=== PATIENT | female | born 1960 | race Caucasian/White ===

== ENCOUNTER → 2022-05-04 07:13 | Outpatient (CLI) | payer OTHER, SELFPAY ==
[2022-05-04 08:30] LABS: Hematocrit 39.6 % (36-46); Hemoglobin 13.6 g/dL (12.0-16.0); Mean Corpuscular HGB Conc 34.2 % (30-36); Mean Corpuscular Hemoglobin 30.6 PG (26-34); Mean Corpuscular Volume 89.3 fL (80-100); Platelet Count 202 X10^3/uL (150-400); Red Blood Cell Count 4.44 X10^6/uL (4.0-5.2); Red Cell Distribution Width 13.4 % (11.6-14.8); White Blood Cell Count 4.7 X10^3/uL (4.5-11.0)
[2022-05-04 08:50] LABS: Alanine Aminotransferase 24 IU/L (<35); Albumin 4.5 g/dL (3.5-5.0); Albumin Globulin Ratio 1.5 (1.0-2.8); Alkaline Phosphatase 116 U/L (38-126); Aspartate Aminotransferase 35 IU/L (14-36); BUN Creatinine Ratio 32.4 (6-22); Bilirubin Total 0.3 mg/dL (0.2-1.3); Blood Urea Nitrogen 24 mg/dL (7-17); Calcium 9.1 mg/dL (8.4-10.2); Carbon Dioxide 26 mmol/L (22-32); Chloride 105 mmol/L (98-107); Cholesterol 237 mg/dL (140-199); Estimated Glomerular Filt Rate > 60 mL/min (>60); Globulin 3.1 g/dL (1.7-4.1); Glucose 105 mg/dL (80-110); HDL Cholesterol 69 mg/dL (40-60); HEMOLYSIS 24 (0-50); LDL Cholesterol Calculated 140 mg/dL (<100); Potassium 4.4 mmol/L (3.4-5.1); Sodium 138 mmol/L (137-145); Total Protein 7.6 g/dL (6.3-8.2); Triglycerides 141 mg/dL (35-150)
[2022-05-04 10:40] LABS: TSH w/ Reflex to FT4 3.32 uIU/mL (0.47-4.68)
== END ==
PROVIDERS: PCP Internal Medicine; Referring Provider Internal Medicine; Visit Provider Internal Medicine
DX: E78.2 Mixed hyperlipidemia (principal); F41.1 Generalized anxiety disorder; F51.04 Psychophysiologic insomnia; I10 Essential (primary) hypertension; N95.1 Menopausal and female climacteric states
CPT/HCPCS: 36415; 80053; 80061; 84443; 85027

== ENCOUNTER → 2023-11-01 07:41 | Outpatient (CLI) | payer OTHER, SELFPAY ==
[2023-11-01 08:18] LABS: Add Manual Diff / Slide Review NO; Basophils Absolute Auto 0 /uL (0-100); Basophils Percent Auto 0.5 % (0-2); Eosinophils Absolute Auto 100 /uL (0-450); Eosinophils Percent Auto 1.7 % (2-4); Hematocrit 40.7 % (36-46); Hemoglobin 13.7 g/dL (12.0-16.0); Lymphocytes Absolute Auto 1300 /uL (1100-4500); Lymphocytes Percent Auto 26.5 % (25-40); Mean Corpuscular HGB Conc 33.5 % (30-36); Mean Corpuscular Hemoglobin 29.8 PG (26-34); Mean Corpuscular Volume 88.8 fL (80-100); Monocytes Absolute Auto 400 /uL (0-900); Monocytes Percent Auto 7.1 % (3-14); Neutrophils Absolute Auto 3200 /uL (1500-7000); Neutrophils Percent Auto 64.2 % (50-75); Platelet Count 227 X10^3/uL (150-400); Red Blood Cell Count 4.59 X10^6/uL (4.0-5.2); Red Cell Distribution Width 13.4 % (11.6-14.8)
[2023-11-01 08:45] LABS: Alanine Aminotransferase 25 IU/L (<35); Albumin 4.6 g/dL (3.5-5.0); Albumin Globulin Ratio 1.4 (1.0-2.8); Alkaline Phosphatase 70 U/L (38-126); Aspartate Aminotransferase 32 IU/L (14-36); BUN Creatinine Ratio 22.1 (6-22); Bilirubin Total 0.6 mg/dL (0.2-1.3); Blood Urea Nitrogen 19 mg/dL (7-17); Calcium 10.3 mg/dL (8.4-10.2); Carbon Dioxide 28 mmol/L (22-32); Chloride 100 mmol/L (98-107); Cholesterol 209 mg/dL (140-199); Estimated Glomerular Filt Rate > 60 mL/min (>60); Globulin 3.2 g/dL (1.7-4.1); Glucose 100 mg/dL (80-110); HDL Cholesterol 65 mg/dL (40-60); HEMOLYSIS < 15 (0-50); LDL Cholesterol Calculated 120 mg/dL (<100); Potassium 4.9 mmol/L (3.4-5.1); Sodium 136 mmol/L (137-145); Total Protein 7.8 g/dL (6.3-8.2); Triglycerides 119 mg/dL (35-150)
== END ==
PROVIDERS: PCP Internal Medicine; Referring Provider Family Medicine; Visit Provider Family Medicine
DX: E88.810 Metabolic syndrome (principal); R73.01 Impaired fasting glucose; E78.2 Mixed hyperlipidemia
CPT/HCPCS: 36415; 80053; 80061; 83036; 85025

== ENCOUNTER → 2024-03-08 09:02 | Outpatient (CLI) | payer OTHER, SELFPAY ==
[2024-03-08 09:49] LABS: Aspartate Aminotransferase 45 IU/L (14-36); Cholesterol 153 mg/dL (140-199); HDL Cholesterol 83 mg/dL (40-60); LDL Cholesterol Calculated 56 mg/dL (<100); Triglycerides 71 mg/dL (35-150)
== END ==
PROVIDERS: PCP Internal Medicine; Referring Provider Internal Medicine; Visit Provider Internal Medicine
DX: E78.2 Mixed hyperlipidemia (principal)
CPT/HCPCS: 80061; 84450

== ENCOUNTER → 2024-09-26 14:16 | Outpatient (CLI) | payer OTHER, SELFPAY ==
--- NOTE | 2024-09-26 14:17 | DI.MRI.S_ITS ---
BREAST MRI OF BOTH BREASTS: 09/26/2024 CLINICAL: Left breast implant rupture. No prior exams were available for comparison. TECHNIQUE: The patient was placed prone in a dedicated breast imaging coil. Axial bilateral STIR, axial and sagittal STIR with water saturation (silicone selective), sagittal T2 fast spin echo with fat saturation, and coronal T2 fast spin echo without fat saturation sequences were acquired. FINDINGS: Image quality: There is respiratory motion and pulsation artifact on multiple sequences that mildly compromises evaluation. Diagnostic information is obtained. Right breast: Retropectoral silicone implant is present. Multiple radial folds are seen. There is silicone present between the internal and external capsules anteriorly and superiorly, consistent with intracapsular rupture. No extracapsular rupture or free silicone is seen. No suspicious breast mass is seen on this noncontrast exam. No axillary or internal mammary lymphadenopathy. Left breast: Retropectoral silicone implant is present. Multiple radial folds are seen. No separation of capsules is seen to suggest intracapsular rupture. No extracapsular rupture or free silicon in the breast. No suspicious breast mass is seen on this noncontrast exam. No axillary or internal mammary lymphadenopathy. IMPRESSION: BENIGN 1. Right breast retropectoral silicone implant with intracapsular rupture. No extracapsular rupture or free silicone is seen. 2. Left breast retropectoral silicone implant. Multiple prominent radial folds are seen, but no intracapsular or extracapsular rupture is identified. BIRADS 2: Benign. Recommend clinical correlation. This exam was interpreted at Station ID: [id number]. Electronically Signed By: Efra Santana M.D. ar/:09/27/2024 12:42:14 letter sent: Clinical Evaluation ACR BI-RADS Category 2: Benign
== END ==
PROVIDERS: PCP Internal Medicine; Referring Provider Physician Assistant; Visit Provider Physician Assistant
DX: T85.44XA Capsular contracture of breast implant, initial encounter (principal); T85.43XA Leakage of breast prosthesis and implant, initial encounter
CPT/HCPCS: 77047

== ENCOUNTER → 2025-01-08 07:43 | Outpatient (CLI) | payer OTHER, SELFPAY ==
[2025-01-08 07:58] LABS: Hemoglobin 13.1 g/dL (12.0-16.0); Mean Corpuscular HGB Conc 34.4 % (30-36); Mean Corpuscular Hemoglobin 30.5 PG (26-34); Mean Corpuscular Volume 88.8 fL (80-100); Platelet Count 227 X10^3/uL (150-400); Red Blood Cell Count 4.28 X10^6/uL (4.0-5.2); Red Cell Distribution Width 13.5 % (11.6-14.8); White Blood Cell Count 4.1 X10^3/uL (4.5-11.0)
[2025-01-08 08:31] LABS: Alanine Aminotransferase 29 IU/L (<35); Albumin 4.9 g/dL (3.5-5.0); Albumin Globulin Ratio 1.7 (1.0-2.8); Alkaline Phosphatase 104 U/L (38-126); Aspartate Aminotransferase 44 IU/L (14-36); BUN Creatinine Ratio 24.1 (6-22); Bilirubin Total 0.9 mg/dL (0.2-1.3); Blood Urea Nitrogen 19 mg/dL (7-17); Calcium 9.9 mg/dL (8.4-10.2); Carbon Dioxide 28 mmol/L (22-32); Chloride 102 mmol/L (98-107); Cholesterol 161 mg/dL (140-199); Estimated Glomerular Filt Rate > 60 mL/min (>60); Globulin 2.9 g/dL (1.7-4.1); Glucose 104 mg/dL (80-110); HDL Cholesterol 86 mg/dL (40-60); HEMOLYSIS < 15 (0-50); LDL Cholesterol Calculated 61 mg/dL (<100); Potassium 4.3 mmol/L (3.4-5.1); Sodium 139 mmol/L (137-145); Total Protein 7.8 g/dL (6.3-8.2); Triglycerides 70 mg/dL (35-150)
[2025-01-08 09:01] LABS: TSH w/ Reflex to FT4 1.15 uIU/mL (0.47-4.68)
--- NOTE | 2025-01-08 11:55 | DI.RAD.S_ITS ---
PROCEDURE: XR DEXA AXIAL SKELETON INDICATIONS: postmenopausal COMPARISON: None. FINDINGS: Lumbar Spine: Bone mineral density 0.802 g/cm2, T score -2.2. Left Femoral Neck: Bone mineral density 0.610 g/cm2, T score -2.2. Left Hip: Bone mineral density 0.754 g/cm2, T score -1.5 Fracture Risk Calculation (when applicable): 10-year fracture risk of a major osteoporotic fracture 9.8 percent and of a hip fracture 1.7 percent. (T score greater or equal to -1.0 to: NORMAL) (T score from -1.1 to -2.4: OSTEOPENIA) (T score less than or equal to -2.5: OSTEOPOROSIS) IMPRESSION: Moderate to severe osteopenia most severe in the lumbar spine and left femoral neck. Follow-up guidelines as follows: Osteoporosis: Consider a repeat DEXA and Vertebral Fracture Assessment (VFA) exam in 2 years or sooner if medically necessary, to reassess this patient's status. Osteopenia: Consider a repeat DEXA in 2-3 years to reassess this patient's status, or if there is a new clinical indication. Normal: Consider a repeat DEXA in 5 years or sooner, or if there is a new clinical indication. All treatment decisions require clinical judgment and consideration of individual patient factors, including patient preferences, comorbidities, previous drug use, risk factors not captured in the FRAX model (e.g., frailty, falls, vitamin D deficiency, increased bone turnover, interval significant decline in bone density ) and possible under- or over-estimation of fracture risk by FRAX. In addition, the NOF Guide recommends that FDA-approved medical therapies be considered in postmenopausal women and men age >= 50 years with a: * Hip or vertebral (clinical or morphometric) fracture * T-score of <=-2.5 at the spine or hip * Ten-year fracture probability by FRAX of >= 3% for hip fracture or >=20% for major osteoporotic fracture. Dictated by: Nikia Mercado M.D. on 01/08/2025 at 14:15 Approved by: Nikia Mercado M.D. on 01/08/2025 at 14:16
== END ==
PROVIDERS: PCP Internal Medicine; Referring Provider Internal Medicine; Visit Provider Internal Medicine
DX: Z00.00 Encounter for general adult medical examination without abnormal findings (principal); M85.89 Other specified disorders of bone density and structure, multiple sites; E78.2 Mixed hyperlipidemia; I10 Essential (primary) hypertension
CPT/HCPCS: 36415; 77080; 80053; 80061; 84443; 85027